=== PATIENT | male | born 1975 | race Caucasian/White ===

== ENCOUNTER 2018-04-26 06:15 | Day surgery (SDC) | payer BC ==
[2018-04-15 16:54] VITALS: BMI 38.0
[2018-04-26] MEDS ORDERED: ROPIVACAINE HCL 0.5% 30ML VIAL ONE (07:47)
[2018-04-26] MEDS ORDERED: MIDAZOLAM HCL 2 MG/2 ML SINGLE DOSE VIAL ONE ×2 (07:47→09:11)
[2018-04-26] MEDS ORDERED: SUCCINYLCHOLINE CHLORIDE 200 MG/10 ML VIAL ONE (08:44)
[2018-04-26] MEDS ORDERED: PROPOFOL 20 ML ONE ×3 (08:48→10:14)
[2018-04-26] MEDS ORDERED: ONDANSETRON 4 MG/2 ML VIAL IVPUSH PRN (08:53)
[2018-04-26] MEDS ORDERED: oxyCODONE HCL 5 MG TABLET PO PRN ×2 (08:53)
[2018-04-26] MEDS ORDERED: LACTATED RINGERS SOLUTION 1,000 ML IV SCH (09:00)
[2018-04-26] MEDS ORDERED: DEXAMETHASONE SOD PHOSPHATE 4 MG/1 ML VIAL ONE ×2 (09:09→09:27)
[2018-04-26] MEDS ORDERED: ceFAZolin SODIUM 1 GM VIAL ONE (09:09)
[2018-04-26] MEDS ORDERED: ONDANSETRON 4 MG/2 ML VIAL ONE ×2 (09:27→11:30)
--- NOTE | 2018-04-26 11:24 | OP ---
Operative Note - Note: Operative Date: 04/26/18 Pre-Operative Diagnosis: Right shoulder impingement syndrome. Right shoulder rotator cuff tear Operation: Right shoulder open: 1. Aliya procedure. 2. Neer decompression. 3. Primary rotator cuff repair Findings: Full thickness rotator cuff tear Post-Operative Diagnosis: Same as Pre-op Surgeon: Maximiliano Harris El Teacher: Roland Harris Anesthesiologist/HEARING OFFICER: Millie Gama Anesthesia: General Specimens Removed: Bone, soft tissue Estimated Blood Loss (mls): 50 Fluid Volume Replaced (mls): 800 (Crystalloid) Operative Report Dictated: Yes
[2018-04-26 12:24] VITALS: TEMP 97.7
[2018-04-26 12:52] VITALS: BP 130/77; PULSE 64
--- NOTE | 2018-04-27 06:38 | OP ---
DATE OF OPERATION: DATE OF DICTATION: 04/26/2018 SURGEON: Maximiliano Harris MD [employer] OPERATOR: Roland Harris MD, MARCE Allison PREOPERATIVE DIAGNOSIS: Recurrent impingement syndrome with right rotator cuff tear. POSTOPERATIVE DIAGNOSIS: Recurrent impingement syndrome with right rotator cuff tear. OPERATION PERFORMED: 1. Excision arthroplasty ([place]). 2. Acromioplasty. 3. Transfixion of coracoacrominal ligament. 4. Repair of large rotator cuff tear. ANESTHESIA: Scalene block with general anesthesia. ANTIBIOTICS GIVEN: 2 g Kefzol. DESCRIPTION OF PROCEDURE: The patient was correctly identified and brought to the operating room. Right upper limb was prepped and pre-draped in the routine manner with a Betadine scrub solution, wiped of alcohol, DuraPrep applied. The incision was from the tip of the acromion to the coracoid. Imaging was available for intraoperative evaluation, and time-out was called prior to incision. Dissection was taken through the skin and subcutaneous tissue. A Holmann was placed around the distal end of the clavicle, and the AC joint readily identified. This revealed significant arthrosis. Once the capsule had been incised and the joint exposed, the clavicle was lifted with the 2 Holmann retractors, and using an oscillating saw 1 cm beveled from superolateral to inframedial. Osteotomy performed of the bone bed freeing and removing the entire osteophyte of the severe arthritic joint. At that point, it was clearly apparent that the lateral part of the joint also had a large, lipped underlying osteophyte. Under the [place] retractor, which was lifting the muscle, the CA ligament was readily identified. The muscle was off the actual CA ligament. Using a peanut, this was transected appropriately. The entire CA complex was now freed. The acromion was exposed by placing a Holmann. The tip of the blunt Holmann placed under the acromion leaving the humeral head downwards and a liberal alexandra bone resected from the undersurface of the acromion to free the subacromial space significantly. Now that the entire shoulder joint had been decompensated, the rotator cuff was identified and inspected. A large avascular tear with some muscle retraction noted accordingly. The edges of the tear were resected using a 15-blade knife. This brought about bleeding down to bleeding muscle. Accordingly, No. 1 Vicryl sutures interrupted were utilized to completely repair this tear. Excellent repair achieved. The wounds were thoroughly lavaged. Soft tissues were closed as follows. The soft tissue was approximated into the joint. The muscle was reattached with 1 Vicryl, subcutaneous with 1-0 and 2-0 Vicryl, skin 3-0 Monocryl with Steri-Strips. No drainage utilized. The operation went excellent well. No complications. MD IVANNA Sanchez/[id number]
[2018-04-27] MEDS ORDERED: PATIENT'S OWN MEDICATION (NON-FORMULARY) (Lamotrigine [Lamictal] 150 MG) PO SCH (10:00)
[2018-04-27] MEDS ORDERED: BUPROPION HCL 450 MG PO SCH (10:00)
== END 2018-04-26 13:08 | disposition home or self-care (01) ==
LOC: FASU 06:15
PROVIDERS: ATTEND Orthopaedic Surgery Orthopaedic Surgery of the Spine
PROC: 0MN10ZZ Release Right Shoulder Bursa and Ligament, Open Approach (ICD-10-PCS; 2018-04-26)
PROC: 0LQ10ZZ Repair Right Shoulder Tendon, Open Approach (ICD-10-PCS; 2018-04-26)
PROC: 0PB90ZZ Excision of Right Clavicle, Open Approach (ICD-10-PCS; principal; 2018-04-26 09:59)
DX: M75.41 Impingement syndrome of right shoulder (principal); M75.121 Complete rotator cuff tear or rupture of right shoulder, not specified as traumatic
CPT/HCPCS: 94760